=== PATIENT | female | born 1940 | race Caucasian/White ===

== ENCOUNTER 2021-10-03 23:24 | Emergency (ER) | payer SELFPAY ==
[2021-10-03 23:36] VITALS: BP 220/105; PULSE 68; RESP 18; TEMP 36.8; O2SAT 98; BMI 23.0
--- NOTE | 2021-10-03 23:40 | DI.CT.S_ITS ---
PROCEDURE: CT HEAD/BRAIN WO CON INDICATIONS: Hit head on thinners TECHNIQUE: Noncontrast 5 mm thick angled axial sections acquired from the foramen magnum to the vertex, with coronal and sagittal reformats. For radiation dose reduction, the following was used: automated exposure control, adjustment of mA and/or kV according to patient size. COMPARISON: None. FINDINGS: Image quality: Excellent. CSF spaces: Basal cisterns are patent. No extra-axial fluid collections. The ventricles are symmetric in size and shape. There is mild cerebral volume loss, with resultant ventricular and sulcal prominence. Brain: No intracranial hemorrhage, mass, or mass effect. There are subcortical, periventricular and deep white matter hypodensities consistent with mild chronic small vessel ischemic changes. The garrison-white matter junction appears preserved. There is intracranial internal carotid artery atherosclerosis. Skull and face: Calvarium and visualized facial bones appear intact, without suspicious lesions. Sinuses: Visualized sinuses demonstrated mucosal thickening within the right frontal and bilateral ethmoid sinuses. The mastoid air cells are clear. IMPRESSION: 1. No acute intracranial abnormality. 2. Mild chronic white matter small vessel ischemic changes and cerebral volume loss. Dictated by: Jesse Mcarthur M.D. on 10/04/2021 at 0:01 Approved by: Jesse Mcarthur M.D. on 10/04/2021 at 0:03
--- NOTE | 2021-10-03 23:57 | ED_ITS ---
HPI - Fall General Chief Complaint: Fall Stated Complaint: fall hit head bump on and has headache Time Seen by Provider: 10/03/21 23:45 Source: patient Mode of arrival: Ambulatory History of Present Illness HPI Narrative: 81-year-old woman anticoagulated on Eliquis for atrial fibrillation [facility] evening she stumbled coming up a flight of stairs and with a graceful fall to save the rest of her body she ended up hitting the back of her head on the single stair above her. There is no loss of consciousness but she does have a minor contusion to the back her head. She is not complaining of dizziness, visual changes, nausea, ataxia or any additional neurologic complaints. She is not recently had any fevers, cough, chills, abdominal pain. Related Data Allergies Allergy/AdvReac Type Severity Reaction Status Date / Time No Known Drug Allergies Allergy Verified 10/03/21 23:36 Review of Systems Review of Systems Narrative: Remainder of complete review of systems is otherwise unremarkable except for that included in the HPI. Patient History Medical History (Updated 10/04/21 @ 01:27 by Monica Mata MD) Atrial fibrillation Social History Smoking Status: Never smoker Smoking Status: Never smoker alcohol intake frequency: 0-2 drinks per day Substance Use Type: does not use Exam Initial Vital Signs Initial Vital Signs: Vital Signs Temperature 98.2 F 10/03/21 23:36 Pulse Rate 68 10/03/21 23:36 Respiratory Rate 18 10/03/21 23:36 Blood Pressure 220/105 H 10/03/21 23:36 Pulse Oximetry 98 10/03/21 23:36 Oxygen Delivery Method 10/03/21 23:36 General: Healthy appearing, in no acute distress. Able to give a complete and coherent history. Well-nourished well-developed HEENT: Moist mucous membranes, normal sclera with reactive pupils, 3 x 3 cm hematoma to the occiput without laceration or abrasion Neck: No tenderness along the midline cervical spine supple Respiratory: Lungs are clear to auscultation, no wheezing no rales no rhonchi. Full and symmetrical air movement Cardiac: Regular rate and rhythm no murmurs no bruits Abdomen: Soft, nontender, good bowel tones, no flank pain Skin: Warm and dry, no rashes Neurologic: Grossly neurologically intact with no obvious asymmetries or abnormalities Extremities: No trauma, well perfused, no trauma of any type in the extremities or hips Psych: Cooperative, appropriate insight and affect Course Orders Ordered: ED Orders 10/03/21 23:40 CT head/brain wo con Stat Vital Signs Vital signs: Vital Signs - 8 hr 10/03/21 23:36 10/04/21 00:38 10/04/21 01:04 Temperature 98.2 F Pulse Rate 68 60 Respiratory Rate 18 Blood Pressure 220/105 H 181/84 H Pulse Oximetry 98 98 Oxygen Delivery Method Room Air 10/04/21 01:06 10/04/21 01:06 Temperature Pulse Rate 57 L Respiratory Rate Blood Pressure 174/84 H Pulse Oximetry 99 Oxygen Delivery Method Room Air MDM - Fall Imaging Data CT scan - head: Radiologist's Impression: FINDINGS:? Image quality:? Excellent.? ? CSF spaces:? Basal cisterns are patent.? No extra-axial fluid collections.? The ventricles are symmetric in size and shape.? There is mild cerebral volume loss, with resultant ventricular and sulcal prominence.? ? Brain:? No intracranial hemorrhage, mass, or mass effect.? There are subcortical, periventricular and deep white matter hypodensities consistent with mild chronic small vessel ischemic changes.? The garrison-white matter junction appears preserved.? There is intracranial internal carotid artery atherosclerosis.? ? Skull and face:? Calvarium and visualized facial bones appear intact, without suspicious lesions.? ? Sinuses:? Visualized sinuses demonstrated mucosal thickening within the right frontal and bilateral ethmoid sinuses.? The mastoid air cells are clear. ? IMPRESSION:? ? 1. No acute intracranial abnormality.? ? 2. Mild chronic white matter small vessel ischemic changes and cerebral volume loss.? ? Dictated by: Jesse Mcarthur M.D. on 10/04/2021 at 0:01 ? ? [facility] Narrative Medical decision making narrative: [age] year old woman with minor fall and contusion to the occiput currently on Eliquis. CT scan is unremarkable and there is no other sign of injury. Patient does not have a headache and has no other concerns or issues at this time. CT scan is reviewed with the patient and she is safe for home discharge Discharge Plan Departure Patient Disposition: Home Clinical Impression: Contusion of head, Anticoagulant long-term use Instructions: DI for Closed Head Injury Activity Restrictions/Additional Instructions: Thank you for coming in today I am glad that you had a graceful type fall and only a minor bump to your head. Fortunately, there is no bleeding on the inside. You may still find that you have areas that are a bit sore tomorrow. Using Tylenol to help with pain would be appropriate. If you find that you are getting worse or develop any new symptoms, please feel free to return to the emergency department for further evaluation.
[2021-10-04 00:38] VITALS: BP 181/84
[2021-10-04 01:04] VITALS: PULSE 60; O2SAT 98
[2021-10-04 01:06] VITALS: BP 174/84; PULSE 57; O2SAT 99
== END 2021-10-04 01:53 | disposition home or self-care (01) ==
PROVIDERS: Emergency Provider Emergency Medicine
DX: S00.03XA Contusion of scalp, initial encounter (principal); W19.XXXA Unspecified fall, initial encounter; Z79.01 Long term (current) use of anticoagulants
CPT/HCPCS: 70450; 99284